=== PATIENT | male | born 1970 | race Caucasian/White ===

== ENCOUNTER 2022-07-19 18:01 | Emergency (ER) | payer BC ==
[2022-07-19] MEDS ORDERED: Acetaminophen/oxyCODONE 325-5 MG Tab PO ONE (18:02)
[2022-07-19] MEDS ORDERED: Cyclobenzaprine 10 MG Tab PO ONE (18:02)
[2022-07-19] MEDS: Orphenadrine 60 MG/2 ML Inj IM ONE (19:22)
[2022-07-19 20:19] LABS: MDMA (ECSTASY), URINE NEGATIVE (NEGATIVE); METHADONE,URINE NEGATIVE (NEGATIVE); METHAMPHETAMINES,URINE NEGATIVE (NEGATIVE)
[2022-07-19 20:20] LABS: AMPHETAMINES,URINE NEGATIVE (NEGATIVE); BARBITURATES,URINE NEGATIVE (NEGATIVE); BENZODIAZEPINE,URINE NEGATIVE (NEGATIVE); OPIATES,URINE POSITIVE (NEGATIVE); OXYCODONE,URINE NEGATIVE (NEGATIVE); PHENCYCLIDINE,URINE NEGATIVE (NEGATIVE); TCA,URINE NEGATIVE (NEGATIVE)
[2022-07-19] MEDS ORDERED: Acetaminophen/oxyCODONE 325-5 MG Tab ONE (20:52)
[2022-07-19] MEDS ORDERED: Cyclobenzaprine 10 MG Tab ONE (20:52)
== END 2022-07-19 21:04 | disposition home or self-care (01) ==
LOC: DL.ED 18:01
DX: M48.061 Spinal stenosis, lumbar region without neurogenic claudication (principal)
CPT/HCPCS: 72128; 72131; 73700; 80305; 81001; 96372; 99284; A9270; J2360

== ENCOUNTER 2023-05-07 06:26 | Day surgery (SDC) | payer BC ==
[2023-05-07] MEDS ORDERED: Dextrose 5%-0.45% NaCl 1,000 ML IV SCH (06:30)
[2023-05-07] MEDS ORDERED: Midazolam 1 MG/ML 2 ML SDV IV ONE ×7 (07:38→07:50)
[2023-05-07] MEDS ORDERED: fentaNYL 100 MCG/2 ML SDV ONE (07:38)
[2023-05-07] MEDS ORDERED: fentaNYL 100 MCG/2 ML SDV IV ONE ×5 (07:38→07:54)
[2023-05-07] MEDS ORDERED: Midazolam 1 MG/ML 2 ML SDV ONE (07:38)
== END 2023-05-07 09:30 | disposition home or self-care (01) ==
LOC: DL.ENDO 06:26
PROVIDERS: ATTEND Internal Medicine Gastroenterology
DX: Z12.11 Encounter for screening for malignant neoplasm of colon (principal); K31.5 Obstruction of duodenum; K64.8 Other hemorrhoids; R73.9 Hyperglycemia, unspecified; E77.8 Other disorders of glycoprotein metabolism; E83.51 Hypocalcemia; M54.50 Low back pain, unspecified
CPT/HCPCS: 45378; J2250; J3010; J7042